=== PATIENT | male | born 1975 | race African-American/Black ===

== ENCOUNTER 2016-11-23 21:38 | Emergency (ER) | payer OTHER ==
--- NOTE | 2016-11-23 22:18 | ED ---
Lower Extremity Injury HPI - General Chief Complaint: Extremity Injury, Lower Stated Complaint: Ankle Injury Time Seen by Provider: 11/23/16 22:00 Source: patient, family, RN notes reviewed, old records reviewed Mode of arrival: ambulatory Limitations: no limitations - Related Data Previous Rx's Medication Instructions Recorded Ibuprofen [Motrin] 600 mg PO Q8HR PRN #20 tab 11/23/16 Allergies Allergy/AdvReac Type Severity Reaction Status Date / Time codeine Allergy Rash/Hives Verified 11/23/16 21:49 Review of Systems ROS Statement: Those systems with pertinent positive or pertinent negative responses have been documented in the HPI. ROS Other: All systems not noted in ROS Statement are negative. Past Medical History Past Medical History: Chest Pain / Angina Additional Past Medical History / Comment(s): heart murmur, History of Any Multi-Drug Resistant Organisms: None Reported Past Surgical History: Orthopedic Surgery Additional Past Surgical History / Comment(s): left lower leg. Past Psychological History: No Psychological Hx Reported Smoking Status: Current every day smoker Past Alcohol Use History: None Reported, Occasional Past Drug Use History: None Reported General Exam Limitations: no limitations General appearance: alert, in no apparent distress Head exam: Present: atraumatic, normocephalic, normal inspection Eye exam: Present: normal appearance, PERRL, EOMI. Absent: scleral icterus, conjunctival injection, periorbital swelling ENT exam: Present: normal exam, mucous membranes moist Neck exam: Present: normal inspection. Absent: tenderness, meningismus, lymphadenopathy Respiratory exam: Present: normal lung sounds bilaterally. Absent: respiratory distress, wheezes, rales, rhonchi, stridor Cardiovascular Exam: Present: regular rate, normal rhythm, normal heart sounds. Absent: systolic murmur, diastolic murmur, rubs, gallop, clicks GI/Abdominal exam: Present: soft, normal bowel sounds. Absent: distended, tenderness, guarding, rebound, rigid Right Lower Leg exam: Present: normal inspection, full ROM Ankle exam: Present: tenderness, swelling. Absent: normal inspection, full ROM Neurovascular tendon exam: Present: no vascular compromise Gait: observed and normal Disposition Clinical Impression: Right ankle sprain Disposition: HOME SELF-CARE Condition: Good Instructions: Ankle Sprain (ED) Additional Instructions: Denies a take Motrin or Tylenol for pain. Remain in the splint for the next day or so. Patient should put ice over the foot and ankle as much as possible. Follow-up with orthopedic within the next 7-10 days of symptoms continue to persist. Return to emergency department if any alarming signs symptoms occur. Prescriptions: Ibuprofen [Motrin] 600 mg PO Q8HR PRN #20 tab PRN Reason: Pain Referrals: None,Stated [Primary Care Provider] - 1-2 days Rizwan Orantes DO [Doctor of Osteopathic Medicine] - 1-2 days Time of Disposition: 22:31
--- NOTE | 2016-11-23 22:24 | XR ---
EXAM: XR Right Foot Complete, 3 or More Views CLINICAL HISTORY: Reason: Pain TECHNIQUE: Frontal, lateral and oblique views of the right foot. COMPARISON: No relevant prior studies available. FINDINGS: Bones/joints: Unremarkable. No acute fracture. No dislocation. Soft tissues: Mild overlying soft tissue swelling is suggested. No radiopaque foreign body. IMPRESSION: Mild soft tissue swelling. No radiographic evidence of an acute fracture. If an occult fracture is suspected, radiographs of the right foot may be obtained in 10-14 days for follow-up.
--- NOTE | 2016-11-23 22:26 | XR ---
EXAM: XR Right Ankle Complete, 3 or More Views CLINICAL HISTORY: Reason: Pain TECHNIQUE: Frontal, lateral and oblique views of the right ankle. COMPARISON: No relevant prior studies available. FINDINGS: Bones/joints: A small ankle joint effusion is suggested. No acute fracture. No dislocation. Soft tissues: Marked soft tissue swelling is seen overlying the lateral malleolus with mild soft tissue swelling overlying the medial malleolus. IMPRESSION: Marked soft tissue swelling, as above. Small ankle joint effusion suggested. No radiographic evidence of an acute fracture. If an occult fracture is suspected, radiographs of the right ankle may be obtained in 10-14 days for follow-up.
== END 2016-11-23 22:42 | disposition home or self-care (01) ==
LOC: EC 21:38
DX: S93.401A Sprain of unspecified ligament of right ankle, initial encounter (principal); F17.200 Nicotine dependence, unspecified, uncomplicated; Z88.5 Allergy status to narcotic agent; Z98.890 Other specified postprocedural states; X50.9XXA Other and unspecified overexertion or strenuous movements or postures, initial encounter; Y92.410 Unspecified street and highway as the place of occurrence of the external cause; Y93.89 Activity, other specified
CPT/HCPCS: 29515; 99284

== ENCOUNTER 2018-03-19 23:18 | Emergency (ER) | payer OTHER ==
[2018-03-19 23:33] VITALS: BP 135/85; PULSE 67; RESP 16; TEMP 98.1
--- NOTE | 2018-03-20 00:15 | XR ---
EXAMINATION TYPE: XR shoulder complete LT DATE OF EXAM: 03/20/2018 COMPARISON: NONE HISTORY: Shoulder pain TECHNIQUE: 3 views FINDINGS: I see no fracture nor dislocation. Joint spaces are normal. There are no pathologic calcifi cations. IMPRESSION: Negative left shoulder exam.
[2018-03-20] MEDS ORDERED: traMADol 50 MG STARTER PACK 3 TAB BTL PO STA (01:55)
--- NOTE | 2018-03-20 01:59 | ED ---
General Adult HPI - General Chief complaint: Extremity Problem,Nontraumatic Stated complaint: L shoulder pain Source: patient Mode of arrival: ambulatory Limitations: no limitations - History of Present Illness Initial comments: 43-year-old male with past medical history of heart murmur presents today for chief complaint of left shoulder pain. Patient states that for the past 1-2 weeks he has been experiencing left shoulder pain that increases with range of motion, he states he feels he has limited secondary to pain. Patient denies any illicit front tingling, loss sensation, chest pain, dyspnea, jaw pain or paresthesias of the upper cherries. Patient denies any direct injury. 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 Patient states he has been not able to work for the past week secondary to pain and left shoulder. Patient denies any bowel pain, nausea, vomiting. Patient denies any erythema, swelling of the left shoulder. patient denies any fever, chills or general malaise. Upon arrival patient is well-appearing, afebrile. Patient does not appear acute distress. Patient states he has been taking ibuprofen at home for pain management however he has not taken any this evening. Remainder of ROS negative, patient denies any recent fever, chills, shortness of breath, chest pain, back pain, abdominal pain, nausea or vomiting, numbness or tingling, dysuria or hematuria, constipation or diarrhea, headaches or visual changes, or any other complaints. - Related Data Previous Rx's Medication Instructions Recorded Ibuprofen [Motrin] 600 mg PO Q8HR PRN #20 tab 11/23/16 Allergies Allergy/AdvReac Type Severity Reaction Status Date / Time codeine Allergy Rash/Hives Verified 03/19/18 23:33 Review of Systems ROS Statement: Those systems with pertinent positive or pertinent negative responses have been documented in the HPI. ROS Other: All systems not noted in ROS Statement are negative. Past Medical History Past Medical History: Chest Pain / Angina Additional Past Medical History / Comment(s): heart murmur, History of Any Multi-Drug Resistant Organisms: None Reported Past Surgical History: Orthopedic Surgery Additional Past Surgical History / Comment(s): left lower leg. Past Psychological History: No Psychological Hx Reported Smoking Status: Current every day smoker Past Alcohol Use History: None Reported, Occasional Past Drug Use History: None Reported General Exam - General Exam Comments Initial Comments: General: The patient is awake and alert, in no distress, and does not appear acutely ill. Eye: Pupils are equal, round and reactive to light, extra-ocular movements are intact. No nystagmus. There is normal conjunctiva bilaterally. No signs of icterus. Ears, nose, mouth and throat: There are moist mucous membranes and no oral lesions. Neck: The neck is supple, there is no tenderness or JVD. Cardiovascular: There is a regular rate and rhythm. No appreciable murmur, rub or gallop is appreciated. Respiratory: Lungs are clear to auscultation, respirations are non-labored, breath sounds are equal. No wheezes, stridor, rales, or rhonchi. Musculoskeletal: Upon inspection of the left shoulder there is no erythema, swelling abrasions lacerations or lesions. No obvious defect or deformity. Patient is able to fully range with for flexion, hyperextension and internal/ external rotation at the left shoulder. Patient does admit to pain with all range of motion. Patient is tender palpation over theAC joint. No scapula tenderness. AC joint crossarm testing patient states reproduces most pain. Positive Neer testing. No noted weakness. Strength 5 out of 5 of the upper extremities including shoulder elbow and wrist joints equally bilaterally. Sensation intact, including the badge area. Patient is able to make the okay [place] thumbs-up and extend at the wrist bilaterally. Ulnar median and radial nerve. Tach. No evidence of wrist. Radial pulses +2 equal bilaterally. Sensation intact and equal bilaterally of the upper extremities. Compartments are soft and compressible. Neurological: A&O x 3. CN II-XII intact, There are no obvious motor or sensory deficits. Coordination appears grossly intact. Speech is normal. Skin: Skin is warm and dry and no rashes or lesions are noted. Psychiatric: Cooperative, appropriate mood & affect, normal judgment. Limitations: no limitations Course Vital Signs 03/19/18 23:31 Temperature 98.1 F Pulse Rate 67 Respiratory 16 Rate Blood Pressure 135/85 O2 Sat by Pulse 100 Oximetry Medical Decision Making - Medical Decision Making 43-year-old male complains of reproducible left shoulder pain. Patient does have a job with repetitive overhead motions. AC crossarm testing reproduces most pain. Patient is tender to palpation over the AC joint. Patient denies any pain to palpation of the scapula. Remainder of review of systems negative. At this time I do feel patient's injury most likely due to overuse. With injury to the before meals joint. No known ever malleus on x-ray. Patient is placed in sling. Patient was given a starter pack for tramadol for pain management. All risks of opioid use were discussed at length patient who verbalized understanding. At this time I do feel patient is stable for discharge with orthopedic surgery follow-up for further evaluation of left shoulder pain. Patient is agreeable plan and discharged. Patient denies constant this time. All return parameters discussed at length prior to discharge. Case discussed , attending provider prior to discharge patient. Disposition Clinical Impression: Left shoulder pain, AC joint pain Disposition: HOME SELF-CARE Condition: Good Instructions: Shoulder Pain (ED) Additional Instructions: Please use medication as discussed- no driving,operating machinery, or working under the influence of tramadol, please do not take with alcohol, other medications discussed or over discussed administration-risks include /over dose. Please follow-up with orthopedic surgery in the next week. Please return to emergency room if the symptoms increase or worsen or for any other concerns. Is patient prescribed a controlled substance at d/c from ED?: No Referrals: None,Stated [Primary Care Provider] - 1-2 days Kirill Sparks PAC [PHYSICIAN SUPPLY ANALYST] - 1-2 days Time of Disposition: 01:58
== END 2018-03-20 02:10 | disposition home or self-care (01) ==
LOC: EC 23:18
DX: M25.512 Pain in left shoulder (principal); F17.200 Nicotine dependence, unspecified, uncomplicated; Z88.5 Allergy status to narcotic agent; X50.3XXA Overexertion from repetitive movements, initial encounter
CPT/HCPCS: 99283

== ENCOUNTER → 2018-05-04 | Outpatient (CLI) | payer OTHER ==
--- NOTE | 2018-05-04 13:52 | MR ---
EXAMINATION TYPE: MR shoulder LT wo con DATE OF EXAM: 05/04/2018 COMPARISON: Left shoulder x-ray March 20, 2018. HISTORY: Pain in left shoulder TECHNIQUE: Multiplanar, multisequence imaging of the left shoulder is performed without contrast. FINDINGS: Rotator Cuff: Distal supraspinatus and infraspinatus tendons are intact. Tiny articular surface tear felt involving anterior infraspinatus tendon fibers measuring 6 mm in AP diameter parasagittal image 6 and 2 mm transverse diameter paracoronal image 16. Supraspinatus tendon is intact. Rotator cuff mus justyn bulk is preserved. Acromioclavicular Joint: Moderate narrowing and capsular hypertrophy is present. Inferior fat plane i s maintained. Distal acromion morphology is unremarkable. Glenohumeral Joint: Small glenohumeral joint effusion is seen. No significant spurring is present. Labrum: The superior labrum shows irregularity and linear increased signal paracoronal images 12 thro ugh 15 suspicious for tear. Biceps Tendon: The long head of biceps is in normal location within bicipital groove. Bone marrow signal: No focal abnormal marrow signal is appreciated. Other: No additional significant abnormality is appreciated. IMPRESSION: 1. Tiny articular surface tear involving anterior 1/5 of fibers of the infraspinatus tendon. 2. Probable superior labral tear, correlate clinically. 3. Moderate AC joint arthropathy without underlying impingement.
== END | disposition home or self-care (01) ==
LOC: RADMRIMAIN 10:37
PROVIDERS: ATTEND Orthopaedic Surgery
DX: M75.102 Unspecified rotator cuff tear or rupture of left shoulder, not specified as traumatic (principal); M19.012 Primary osteoarthritis, left shoulder

== ENCOUNTER 2019-05-04 09:27 | Emergency (ER) | payer OTHER ==
[2019-05-04] MEDS ORDERED: IPRATROPIUM-ALBUTEROL 3 ML NEB INHALATION STA (10:00)
[2019-05-04] MEDS ORDERED: methylPREDNISolone SOD SUCCI 125 MG/2 ML VIAL IM ONE (10:00)
--- NOTE | 2019-05-04 10:34 | ED ---
SOB HPI - General Chief Complaint: Shortness of Breath Stated Complaint: SOB/lower back pain Time Seen by Provider: 05/04/19 09:39 Source: patient, RN notes reviewed, old records reviewed Mode of arrival: ambulatory Limitations: no limitations - History of Present Illness Initial Comments: Is a 44-year-old male with a history of cough, respiratory congestion for the past 3 days. He reports that he has a worsening cough with laying down at night. He lives in a [facility] house has been exposed to sick contacts with pneumonia. Patient states that he is a smoker and plans to quit. He is here with his fiance. He denies any fever. Denies any resting chest pain or abdominal pain. - Related Data Home Medications Medication Instructions Recorded Confirmed Ibuprofen [Motrin Ib] 600 mg PO Q8H PRN 05/04/19 05/04/19 Previous Rx's Medication Instructions Recorded Albuterol Inhaler [Ventolin Hfa 1 - 2 puff INHALATION RT-Q6H PRN 05/04/19 Inhaler] #1 inhaler Azithromycin [Zithromax Z-pack] 250 mg PO DIRECTED #6 tab 05/04/19 Promethazine/Dextromethorphan 5 ml PO TID #120 ml 05/04/19 [Phenergan DM Syrup] predniSONE 10 mg PO DAILY #15 tab 05/04/19 Allergies Allergy/AdvReac Type Severity Reaction Status Date / Time codeine Allergy Rash/Hives Verified 03/19/18 23:33 Review of Systems ROS Statement: Those systems with pertinent positive or pertinent negative responses have been documented in the HPI. ROS Other: All systems not noted in ROS Statement are negative. Past Medical History Past Medical History: Chest Pain / Angina Additional Past Medical History / Comment(s): heart murmur, History of Any Multi-Drug Resistant Organisms: None Reported Past Surgical History: Orthopedic Surgery Additional Past Surgical History / Comment(s): left lower leg. Past Psychological History: No Psychological Hx Reported Smoking Status: Current every day smoker Past Alcohol Use History: None Reported, Occasional Past Drug Use History: None Reported General Exam - General Exam Comments Initial Comments: 44-year-old male. Alert and oriented 3. Patient appears in no significant distress. Limitations: no limitations Head exam: Present: atraumatic, normocephalic, normal inspection Eye exam: Present: normal appearance, PERRL, EOMI. Absent: scleral icterus, conjunctival injection, periorbital swelling ENT exam: Present: normal exam, mucous membranes moist Neck exam: Present: normal inspection. Absent: tenderness, meningismus, lymphadenopathy Respiratory exam: Present: normal lung sounds bilaterally. Absent: respiratory distress, wheezes, rales, rhonchi, stridor Cardiovascular Exam: Present: regular rate, normal rhythm, normal heart sounds. Absent: systolic murmur, diastolic murmur, rubs, gallop, clicks GI/Abdominal exam: Present: soft, normal bowel sounds. Absent: distended, tenderness, guarding, rebound, rigid Extremities exam: Present: normal inspection, full ROM, normal capillary refill. Absent: tenderness, pedal edema, joint swelling, calf tenderness Back exam: Present: normal inspection Neurological exam: Present: alert, oriented X3, CN II-XII intact Psychiatric exam: Present: normal affect, normal mood Skin exam: Present: warm, dry, intact, normal color. Absent: rash Course Vital Signs 05/04/19 05/04/19 05/04/19 09:30 10:17 10:26 Temperature 97.9 F Pulse Rate 94 92 92 Respiratory 19 Rate Blood Pressure 137/84 O2 Sat by Pulse 97 Oximetry Medical Decision Making - Medical Decision Making 44-year-old male presents today for cough congestion for the past 3-4 days. Patient reports symptoms are worse with laying down at night. She reports he reports the cough is productive. He is a smoker. Patient was given breathing treatment did have improvement. Chest x-rays negative for any acute process. Patient at this time will be discharged home with prescription for steroids and azithromycin for productive cough and inhaler. Discussed the importance of smoking cessation for greater than 5 minutes. Discussed return parameters. - Radiology Data Radiology results: report reviewed Chest x-ray is negative for any acute cardiopulmonary process. No pleural effusion. Disposition Clinical Impression: COPD exacerbation Disposition: HOME SELF-CARE Condition: Good Instructions (If sedation given, give patient instructions): COPD (Chronic Obstructive Pulmonary Disease) (ED), Acute Bronchitis (ED) Additional Instructions: Please use medication as discussed. Patient should stop smoking. Please follow up with family doctor if symptoms have not improved over the next two days. Please return to the emergency room if your symptoms increase or worsen or for any other concerns. Prescriptions: Promethazine/Dextromethorphan [Phenergan DM Syrup] 5 ml PO TID #120 ml predniSONE 10 mg PO DAILY #15 tab Albuterol Inhaler [Ventolin Hfa Inhaler] 1 - 2 puff INHALATION RT-Q6H PRN #1 inhaler PRN Reason: Shortness Of Breath Azithromycin [Zithromax Z-pack] 250 mg PO DIRECTED #6 tab Is patient prescribed a controlled substance at d/c from ED?: No Referrals: Mauro Dias MD [Primary Care Provider] - 1-2 days Time of Disposition: 11:11
--- NOTE | 2019-05-04 10:59 | XR ---
EXAMINATION TYPE: XR chest 2V DATE OF EXAM: 05/04/2019 COMPARISON: 10/09/2015 HISTORY: Chest pain TECHNIQUE: Frontal and lateral views of the chest are obtained. FINDINGS: There is no focal air space opacity. No evidence for pneumothorax. No pleural effusion. The cardiac silhouette size is within normal limits. The osseous structures are grossly intact. IMPRESSION: 1. No acute cardiopulmonary process.
[2019-05-04 11:28] VITALS: BP 137/95; PULSE 89; RESP 18; TEMP 98.4
== END 2019-05-04 11:28 | disposition home or self-care (01) ==
LOC: EC 09:27
DX: J44.1 Chronic obstructive pulmonary disease with (acute) exacerbation (principal); F17.200 Nicotine dependence, unspecified, uncomplicated; Z71.6 Tobacco abuse counseling; Z88.5 Allergy status to narcotic agent; Z86.79 Personal history of other diseases of the circulatory system
CPT/HCPCS: 94640; 71046; 96372; 99285; 99406; J2930

== ENCOUNTER → 2021-03-09 | Outpatient (CLI) | payer OTHER ==
--- NOTE | 2021-03-09 08:13 | XR ---
EXAMINATION TYPE: XR shoulder complete LT DATE OF EXAM: 03/09/2021 CLINICAL HISTORY: Pain for 3 years. TECHNIQUE: Three views of the left shoulder are obtained. COMPARISON: Left shoulder x-ray March 20, 2018 FINDINGS: There is no acute fracture/dislocation evident in the left shoulder. Mild to moderate narr owing and spurring acromioclavicular joint redemonstrated. Distal acromion morphology unremarkable. M ild narrowing glenohumeral joint without significant spurring redemonstrated. The visualized ribs are intact . IMPRESSION: As above. No significant change from prior.
== END | disposition home or self-care (01) ==
LOC: LABWHC1 07:14
PROVIDERS: ATTEND Family Medicine
DX: R07.9 Chest pain, unspecified (principal); R01.1 Cardiac murmur, unspecified; M25.512 Pain in left shoulder
CPT/HCPCS: 36415; 93005

== ENCOUNTER 2021-04-10 09:39 | Observation (INO) | payer BC, OTHER ==
[2021-04-10] MEDS ORDERED: ASPIRIN 81 MG PO STA (10:00)
--- NOTE | 2021-04-10 10:05 | ED ---
General Adult HPI - General Chief complaint: Chest Pain Stated complaint: chest pain Time Seen by Provider: 04/10/21 09:46 Source: patient, family Mode of arrival: ambulatory Limitations: no limitations - History of Present Illness Initial comments: Dictation was produced using [employer] dictation software. please excuse any grammatical, word or spelling errors. Chief Complaint: 46-year-old male presents emergency department for chest pain History of Present Illness: Patient is a 46-year-old male presents to the emergency department for several hours of chest pain. He states it is like a squeezing sensation to his substernal area. Patient is a regular tobacco user. He denies any other medical problems. He states he has strong family history of ACS and heart attacks. States that all of the males in his family has had some sort of acute coronary syndrome. Patient denies any radiation of symptoms to his jaw or upper extremity. He states he didn't report accompanied lightheadedness. Patient states his symptoms are significantly improved although he still does feel some sensation to his substernal area. No shortness of breath. The ROS documented in this emergency department record has been reviewed and confirmed by me. Those systems with pertinent positive or negative responses have been documented in the HPI. All other systems are other negative and/or noncontributory. PHYSICAL EXAM: General Impression: Alert and oriented x3, not in acute distress HEENT: Normocephalic atraumatic, extra-ocular movements intact, pupils equal and reactive to light bilaterally, mucous membranes moist. Cardiovascular: Heart regular rate and rhythm Chest: Able to complete full sentences, no retractions, no tachypnea Abdomen: abdomen soft, non-tender, non-distended, no organomegaly Musculoskeletal: Pulses present and equal in all extremities, no peripheral edema Motor: no focal deficits noted Neurological: CN II-XII grossly intact, no focal motor or sensory deficits noted Skin: Intact with no visualized rashes Psych: Normal affect and mood ED course: 46-year-old male with significant risk factors for ACS presents to the emergency department for ACS-type symptoms. Vital signs upon arrival are within acceptable limits. EKG does not show any signs of infarction. Laboratory evaluation obtained. CBC, coag panel, metabolic panel is unremarkable. Troponin is negative. COVID-19 test is negative. Chest x-ray is nonacute. Patient reevaluated at bedside 11:45 AM. He is well-appearing. He denies any chest symptoms at this time. Considering patient's history of present illness and extensive family history of ACS patient be admitted to observation with consultation cardiology, sutured troponins and cardiac monitoring. Case is discussed with Dr. Degroot who is willing to accept patients care. EKG interpretation: Ventricular rate 64, normal sinus rhythm,. Interval 162, QRS 80, QTC 44. No MT prolongation, no QTC prolongation, no ST or T-wave changes noted. Perhaps hyperacute T waves in the anterior precordial leads. Rest of EKG is comparable. - Related Data Home Medications Medication Instructions Recorded Confirmed No Known Home Medications 04/10/21 04/10/21 Allergies Allergy/AdvReac Type Severity Reaction Status Date / Time codeine Allergy Rash/Hives Verified 04/10/21 10:48 Review of Systems ROS Statement: Those systems with pertinent positive or pertinent negative responses have been documented in the HPI. ROS Other: All systems not noted in ROS Statement are negative. Past Medical History Past Medical History: Chest Pain / Angina Additional Past Medical History / Comment(s): heart murmur, History of Any Multi-Drug Resistant Organisms: None Reported Past Surgical History: Orthopedic Surgery Additional Past Surgical History / Comment(s): left lower leg. Past Psychological History: No Psychological Hx Reported Smoking Status: Current every day smoker Past Alcohol Use History: None Reported, Occasional Past Drug Use History: None Reported General Exam Limitations: no limitations Course Vital Signs 04/10/21 04/10/21 09:40 09:53 Temperature 97.7 F Pulse Rate 74 Pulse Rate [ 64 Net Finisher ] Respiratory 18 Rate Blood Pressure 132/87 O2 Sat by Pulse 99 Oximetry Medical Decision Making - Lab Data Result diagrams: 04/10/21 10:07 04/10/21 10:07 Lab Results 04/10/21 04/10/21 04/10/21 Range/Units 10:07 10:07 10:07 WBC 9.0 (3.8-10.6) k/uL RBC 4.98 (4.30-5.90) m/uL Hgb 16.1 (13.0-17.5) gm/dL Hct 48.6 (39.0-53.0) % MCV 97.5 (80.0-100.0) fL MCH 32.3 (25.0-35.0) pg MCHC 33.1 (31.0-37.0) g/dL RDW 14.8 (11.5-15.5) % Plt Count 138 L (150-450) k/uL MPV 9.4 Neutrophils % 76 % Lymphocytes % 18 % Monocytes % 4 % Eosinophils % 1 % Basophils % 0 % Neutrophils # 6.9 (1.3-7.7) k/uL Lymphocytes # 1.6 (1.0-4.8) k/uL Monocytes # 0.3 (0-1.0) k/uL Eosinophils # 0.1 (0-0.7) k/uL Basophils # 0.0 (0-0.2) k/uL PT 10.2 (9.0-12.0) sec INR 0.9 (<1.2) APTT 24.6 (22.0-30.0) sec Sodium 136 L (137-145) mmol/L Potassium 4.2 (3.5-5.1) mmol/L Chloride 106 (98-107) mmol/L Carbon Dioxide 26 (22-30) mmol/L Anion Gap 4 mmol/L BUN 15 (9-20) mg/dL Creatinine 0.78 (0.66-1.25) mg/dL Est GFR (CKD-EPI)AfAm >90 (>60 ml/min/1.73 sqM) Est GFR (CKD-EPI)NonAf >90 (>60 ml/min/1.73 sqM) Glucose 102 H (74-99) mg/dL Calcium 9.3 (8.4-10.2) mg/dL Magnesium 1.8 (1.6-2.3) mg/dL Total Bilirubin 0.5 (0.2-1.3) mg/dL AST 30 (17-59) U/L ALT 29 (4-49) U/L Alkaline Phosphatase 72 (38-126) U/L Troponin I (0.000-0.034) ng/mL Total Protein 7.4 (6.3-8.2) g/dL Albumin 4.1 (3.5-5.0) g/dL Lipase 83 (23-300) U/L Coronavirus (PCR) (Not Detectd) 04/10/21 04/10/21 Range/Units 10:07 10:25 WBC (3.8-10.6) k/uL RBC (4.30-5.90) m/uL Hgb (13.0-17.5) gm/dL Hct (39.0-53.0) % MCV (80.0-100.0) fL MCH (25.0-35.0) pg MCHC (31.0-37.0) g/dL RDW (11.5-15.5) % Plt Count (150-450) k/uL MPV Neutrophils % % Lymphocytes % % Monocytes % % Eosinophils % % Basophils % % Neutrophils # (1.3-7.7) k/uL Lymphocytes # (1.0-4.8) k/uL Monocytes # (0-1.0) k/uL Eosinophils # (0-0.7) k/uL Basophils # (0-0.2) k/uL PT (9.0-12.0) sec INR (<1.2) APTT (22.0-30.0) sec Sodium (137-145) mmol/L Potassium (3.5-5.1) mmol/L Chloride (98-107) mmol/L Carbon Dioxide (22-30) mmol/L Anion Gap mmol/L BUN (9-20) mg/dL Creatinine (0.66-1.25) mg/dL Est GFR (CKD-EPI)AfAm (>60 ml/min/1.73 sqM) Est GFR (CKD-EPI)NonAf (>60 ml/min/1.73 sqM) Glucose (74-99) mg/dL Calcium (8.4-10.2) mg/dL Magnesium (1.6-2.3) mg/dL Total Bilirubin (0.2-1.3) mg/dL AST (17-59) U/L ALT (4-49) U/L Alkaline Phosphatase (38-126) U/L Troponin I <0.012 (0.000-0.034) ng/mL Total Protein (6.3-8.2) g/dL Albumin (3.5-5.0) g/dL Lipase (23-300) U/L Coronavirus (PCR) Not Detected (Not Detectd) Disposition Clinical Impression: Chest pain Disposition: ADMITTED IP TO THIS HOSP Condition: Fair Referrals: Mauro Dias MD [Primary Care Provider] - 1-2 days
[2021-04-10 10:28] LABS: INR 0.9 (<1.2); Partial Thromboplastin Time 24.6 sec (22.0-30.0); Prothrombin Time 10.2 sec (9.0-12.0)
[2021-04-10 10:31] LABS: ALT 29 U/L (4-49); AST 30 U/L (17-59); African American GFR (CKD) >90 (>60 ml/min/1.73 sqM); Albumin 4.1 g/dL (3.5-5.0); Alkaline Phosphatase 72 U/L (38-126); Anion Gap 4 mmol/L; Blood Urea Nitrogen 15 mg/dL (9-20); Calcium 9.3 mg/dL (8.4-10.2); Carbon Dioxide 26 mmol/L (22-30); Chloride 106 mmol/L (98-107); Glucose 102 mg/dL (74-99); Lipase 83 U/L (23-300); Magnesium 1.8 mg/dL (1.6-2.3); Non-African American GFR(CKD) >90 (>60 ml/min/1.73 sqM); Potassium 4.2 mmol/L (3.5-5.1); Sodium 136 mmol/L (137-145); Total Bilirubin 0.5 mg/dL (0.2-1.3); Total Protein 7.4 g/dL (6.3-8.2)
[2021-04-10 10:34] LABS: Basophils % (A) 0 %; Eosinophils # (A) 0.1 k/uL (0-0.7); Eosinophils % (A) 1 %; HCT 48.6 % (39.0-53.0); HGB 16.1 gm/dL (13.0-17.5); Lymphocytes # (A) 1.6 k/uL (1.0-4.8); Lymphocytes % (A) 18 %; MCH 32.3 pg (25.0-35.0); MCHC 33.1 g/dL (31.0-37.0); MCV 97.5 fL (80.0-100.0); Mean Platelet Volume 9.4; Monocytes # (A) 0.3 k/uL (0-1.0); Monocytes % (A) 4 %; Neutrophils # (A) 6.9 k/uL (1.3-7.7); Neutrophils % (A) 76 %; Platelet Count 138 k/uL (150-450); RBC 4.98 m/uL (4.30-5.90); RDW 14.8 % (11.5-15.5)
--- NOTE | 2021-04-10 10:53 | XR ---
EXAMINATION TYPE: XR chest 2V DATE OF EXAM: 04/10/2021 COMPARISON: 05/04/2019 TECHNIQUE: PA and lateral views submitted. HISTORY: Chest pain FINDINGS: The lungs are clear and there is no pneumothorax, pleural effusion, or focal pneumonia. Arthropathy of the shoulders. Heart size normal. No overt failure. IMPRESSION: 1. No acute process.
[2021-04-10] MEDS ORDERED: NITROGLYCERIN SL TABS 0.4 MG TAB SUBLINGUAL PRN (11:43)
--- NOTE | 2021-04-10 12:43 | P.CRDCN ---
History of Present Illness Consult date: 04/10/21 History of present illness: HISTORY OF PRESENT ILLNESS: This is a 46-year-old male with a past medical history significant for cigar use, marijuana use, and former nicotine dependence. 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 The patient does report that he recently established with a primary care physician and had an EKG performed which revealed sinus bradycardia and he was referred to see a grout machine operator. The patient states he has an ap pointment on to establish care with Dr. Figueroa. We have been asked to see the patient in consultation for chest pain. Patient examined at the bedside in the emergency room. 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 He states he stood up and became lightheaded. He did not think too much of it and continued working. He states he then developed chest pain. He states it was a squeezing sensation in the middle of his chest. He denies any radiation of the pain. He denied any SOB. Denies nausea or vomiting. He states the pain lasted for about an hour and then subsided. Patient states he has a strong family history of coronary artery disease and s tates "90% of the males in my family have denied of heart attacks". He gives further history that his cousin of a heart attack in his 40s and his dad at the age of 65 from a heart attack. EKG reveals sinus mechanism with nonspecific ST-T wave changes Chest xray negative for acute process Laboratory data: WBC 9.0. Hemoglobin 16.1. Platelet count 138. Sodium 136. Potassium 4.2. BUN 15. Creatinine 0.78. Troponin negative 1. Current home cardiac medications include none REVIEW OF SYSTEMS: At the time of my exam: CONSTITUTIONAL: Denies fever or chills. HEENT: Denies blurred vision, vision changes, or eye pain. Denies hemoptysis CARDIOVASCULAR: Denies chest pain. Denies orthopnea. Denies PND. Denies palpitations RESPIRATORY: Denies shortness of breath. GASTROINTESTINAL: Denies abdominal pain. Denies nausea or vomiting. HEMATOLOGIC: Denies bleeding disorders. GENITOURINARY: Denies any blood in urine. SKIN: Denies pruitis. Denies rash. PHYSICAL EXAM: VITAL SIGNS: Reviewed. GENERAL: Well-developed in no acute distress. HEENT: Head is normocephalic. Pupils are equal, round. Sclerae anicteric. Mucous membranes of the mouth are moist. Neck supple. No JVD or thyromegaly LUNGS: Respirations even and unlabored. Lungs essentially clear to auscultation bilaterally. HEART: Regular rate and rhythm. S1 and S2 heard. ABDOMEN: Soft. Nondistended. Nontender. EXTREMITIES: Normal range of motion. No clubbing or cyanosis. Peripheral pulses intact. No lower extremity edema NEUROLOGIC: Awake and alert. Oriented x 3. ASSESSMENT: Chest pain Daily cigar use and marijuana use Former nicotine dependence Family history of premature coronary artery disease PLAN: Obtain 2D echo to assess cardiac structure and function Decrease aspirin to 81mg daily Trend troponins NPO at midnight Patient to undergo stress echo tomorrow to assess for ischemia if troponins remain negative Further recommendations pending patient course Nurse practitioner note has been reviewed by physician. Signing provider agrees with the documented findings, assessment, and plan of care. Past Medical History Past Medical History: Chest Pain / Angina Additional Past Medical History / Comment(s): heart murmur, History of Any Multi-Drug Resistant Organisms: None Reported Past Surgical History: Orthopedic Surgery Additional Past Surgical History / Comment(s): left lower leg. Past Psychological History: No Psychological Hx Reported Smoking Status: Current every day smoker Past Alcohol Use History: None Reported, Occasional Past Drug Use History: None Reported Medications and Allergies Home Medications Medication Instructions Recorded Confirmed Type No Known Home Medications 04/10/21 04/10/21 History Allergies Allergy/AdvReac Type Severity Reaction Status Date / Time codeine Allergy Rash/Hives Verified 04/10/21 10:48 Physical Exam Vitals: Vital Signs Temp Pulse Pulse Resp BP Pulse Ox 04/10/21 09:53 64 04/10/21 09:40 97.7 F 74 18 132/87 99 Intake and Output 04/09/21 04/10/21 04/10/21 22:59 06:59 14:59 Other: Weight 90.718 kg Results 04/10/21 10:07 04/10/21 10:07 Cardiac Enzymes 04/10/21 04/10/21 Range/Units 10:07 10:07 AST 30 (17-59) U/L Troponin I <0.012 (0.000-0.034) ng/mL Coagulation 04/10/21 Range/Units 10:07 PT 10.2 (9.0-12.0) sec APTT 24.6 (22.0-30.0) sec CBC 04/10/21 Range/Units 10:07 WBC 9.0 (3.8-10.6) k/uL RBC 4.98 (4.30-5.90) m/uL Hgb 16.1 (13.0-17.5) gm/dL Hct 48.6 (39.0-53.0) % Plt Count 138 L (150-450) k/uL Comprehensive Metabolic Panel 04/10/21 Range/Units 10:07 Sodium 136 L (137-145) mmol/L Potassium 4.2 (3.5-5.1) mmol/L Chloride 106 (98-107) mmol/L Carbon Dioxide 26 (22-30) mmol/L BUN 15 (9-20) mg/dL Creatinine 0.78 (0.66-1.25) mg/dL Glucose 102 H (74-99) mg/dL Calcium 9.3 (8.4-10.2) mg/dL AST 30 (17-59) U/L ALT 29 (4-49) U/L Alkaline Phosphatase 72 (38-126) U/L Total Protein 7.4 (6.3-8.2) g/dL Albumin 4.1 (3.5-5.0) g/dL Current Medications Generic Name Dose Route Start Last Admin Trade Name Freq PRN Reason Stop Dose Admin Aspirin 81 mg 04/11/21 09:00 Aspirin 81 Mg PO DAILY DAVID Nitroglycerin 0.4 mg 04/10/21 11:43 Nitroglycerin Sl Tabs 0.4 Mg Tab SUBLINGUAL Q5M PRN Chest Pain Intake and Output 04/09/21 04/10/21 04/10/21 22:59 06:59 14:59 Other: Weight 90.718 kg Patient Weight 04/11/21 06:59 Weight 90.718 kg 04/10/21 10:07 04/10/21 10:07
[2021-04-10] MEDS ORDERED: NALOXONE 0.4 MG/ML 1 ML VIAL IV PRN (13:45)
[2021-04-10] MEDS ORDERED: ONDANSETRON 4 MG/2 ML VIAL IVP PRN (13:45)
[2021-04-10] MEDS ORDERED: ALPRAZolam 0.25 MG TAB PO PRN (13:45)
[2021-04-10] MEDS ORDERED: CALCIUM CARBONATE 500 MG CHEWABLE PO PRN (13:45)
[2021-04-10] MEDS ORDERED: ACETAMINOPHEN TAB 325 MG TAB PO PRN (13:45)
[2021-04-10] MEDS ORDERED: MELATONIN 3 MG TABLET PO PRN (13:45)
--- NOTE | 2021-04-10 14:22 | P.HPIM ---
History of Present Illness H&P Date: 04/10/21 Chief Complaint: Chest pain This is a 46-year-old patient who follows with Dr. Dias. Patient does not take any medications at home. Patient was at work this morning and he felt a squeezing sensation in the middle of the chest. He feels slightly dizzy. No perspiration. Slightly short of breath. Do not radiate anywhere. No relieving or exacerbating factors. Pain was still present after 3-4 hours. Patient denies any prior cardiac history. He does smoke 2 cigars a day. Was a prior cigarette smoker. Does smoke marijuana 2-3 joints a day. Patient admitted for unstable angina. Review of systems: GEN.: None EYES: None HEENT: None NECK: None RESPIRATORY: As above CARDIOVASCULAR: As above GASTROINTESTINAL: None GENITOURINARY: None MUSCULOSKELETAL: None LYMPHATICS: None HEMATOLOGICAL: None PSYCHIATRY: None NEUROLOGICAL: None Past medical history to include: Heart murmur Social history: Patient works at a company that makes [employer] for [employer]. Smokes 2 cigars a day. For about a year. Prior to that a smoke cigarettes. Smokes marijuana 2-3 joints a day. Alcohol occasionally. . Physical examination: VITAL SIGNS: 97.7, 74, 18, 132/87, 99% room air GENERAL: BMI 26.4, sitting up eating lunch. EYES: Pupils equal. Conjunctiva normal. HEENT: External appearance of nose and ears normal, oral cavity grossly normal. NECK: JVD not raised; masses not palpable. HEART: First and second heart sounds are normal; no edema. LUNGS: Respiratory rate normal; clear to auscultation. ABDOMEN: Soft, nontender, liver spleen not palpable, no masses palpable. PSYCH: Alert and oriented x3; mood and affect normal. MUSCULOSKELETAL:No Clubbing/cyanosis;muscles-grossly intact NEUROLOGICAL: Cranial nerves grossly intact; no facial asymmetry, power and sensation grossly intact. LYMPHATICS: No lymph nodes palpable in the axilla and neck INVESTIGATIONS, reviewed in the clinical context: White count 9.0 hemoglobin 16.1 platelets 138 potassium 4.2 creatinine 0.78 Troponin I less than 0.0122 Coronavirus [PCR]: Not detected EKG tracing personally reviewed by me-normal sinus rhythm. Rate 64 Chest x-ray film personally reviewed by me-some hyperinflation. No infiltrate Assessment and plan: -Anterior chest wall pain. Lasting for more than 3 hours. Coronary risk factors include smoking and smoking marijuana. EKG unremarkable. Troponins are negative. Cardiology consulted. Telemetry. -Chronic nicotine dependence, cigarette smoker Nicotine patch -Recreational marijuana use daily Advised against the same Telemetry. 2-D echocardiogram. Serial cardiac enzymes. Cardiology consulted. Aspirin. Nicotine patch. Past Medical History Past Medical History: Chest Pain / Angina Additional Past Medical History / Comment(s): heart murmur, History of Any Multi-Drug Resistant Organisms: None Reported Past Surgical History: Orthopedic Surgery Additional Past Surgical History / Comment(s): left lower leg. Past Psychological History: No Psychological Hx Reported Smoking Status: Current every day smoker Past Alcohol Use History: None Reported, Occasional Past Drug Use History: None Reported Medications and Allergies Home Medications Medication Instructions Recorded Confirmed Type No Known Home Medications 04/10/21 04/10/21 History Allergies Allergy/AdvReac Type Severity Reaction Status Date / Time codeine Allergy Rash/Hives Verified 04/10/21 10:48 Physical Exam Vitals: Vital Signs Temp Pulse Pulse Resp BP Pulse Ox 04/10/21 09:53 64 04/10/21 09:40 97.7 F 74 18 132/87 99 Intake and Output 04/09/21 04/10/21 04/10/21 22:59 06:59 14:59 Other: Weight 90.718 kg Results CBC & Chem 7: 04/10/21 10:07 04/10/21 10:07 Labs: Abnormal Lab Results - Last 24 Hours (Table) 04/10/21 04/10/21 Range/Units 10:07 10:07 Plt Count 138 L (150-450) k/uL Sodium 136 L (137-145) mmol/L Glucose 102 H (74-99) mg/dL
[2021-04-10 16:27] VITALS: RESP 18
[2021-04-10] MEDS: NICOTINE 21MG/24HR PATCH TRANSDERM SCH (17:09)
--- NOTE | 2021-04-11 08:00 | ECHOF ---
Referral Reason:chest pain MEASUREMENTS -------- HEIGHT: 182.9 cm WEIGHT: 90.7 kg BP: 132/87 RVIDd: 3.3 cm (< 3.3) IVSd: 1.1 cm (0.6 - 1.1) LVIDd: 4.9 cm (3.9 - 5.3) LVPWd: 1.1 cm (0.6 - 1.1) IVSs: 1.7 cm LVIDs: 2.7 cm LVPWs: 1.7 cm LAESV Index (A-L): 16.19 ml/m Ao Diam: 2.8 cm (2.0 - 3.7) AV Cusp: 2.1 cm (1.5 - 2.6) LA Diam: 3.1 cm (2.7 - 3.8) MV EXCURSION: 19.676 mm (> 18.000) MV EF SLOPE: 71 mm/s (70 - 150) EPSS: 0.2 cm MV E Jamey: 0.88 m/s MV DecT: 290 ms MV A Jamey: 0.54 m/s MV E/A Ratio: 1.61 RAP: 5.00 mmHg RVSP: 24.27 mmHg FINDINGS -------- Sinus rhythm. This was a technically adequate study. The left ventricular size is normal. Left ventricular wall thickness is normal. Overall left vent ricular systolic function is normal with, an EF between 55 - 60 %. The diastolic filling pattern is normal for the age of the patient 6.58. The right ventricle is mildly enlarged. Normal LA size by volume 22+/-6 ml/m2. The right atrial size is normal. Interatrial and interventricular septum intact. The aortic valve is trileaflet and appears structurally normal. There is no evidence of aortic regu rgitation. There is no evidence of aortic stenosis. No mitral regurgitation. Trace tricuspid regurgitation present. There is no evidence of pulmonary hypertension. The right ventricular systolic pressure, as measured by Doppler, is 24.27mmHg. There is no pulmonic regurgitation present. The aortic root size is normal. The inferior vena cava is mildly dilated. Echo free space represents a pericardial fat pad. There is no pericardial effusion. CONCLUSIONS -------- 1. The left ventricular size is normal. 2. Left ventricular wall thickness is normal. 3. Overall left ventricular systolic function is normal with, an EF between 55 - 60 %. 4. The diastolic filling pattern is normal for the age of the patient 6.58 5. The right ventricle is mildly enlarged. 6. Trace tricuspid regurgitation present. ROUTEMAN: Antonia Cochran RDCS
[2021-04-11 08:11] VITALS: BP 110/70; PULSE 80; TEMP 97.9
[2021-04-11] MEDS ORDERED: ASPIRIN 81 MG PO SCH (09:00)
[2021-04-11] MEDS ORDERED: ASPIRIN 325 MG TAB PO SCH (09:00)
--- NOTE | 2021-04-11 10:01 | P.PN ---
Subjective Progress Note Date: 04/11/21 HISTORY OF PRESENT ILLNESS: This is a 46-year-old male with a past medical history significant for cigar use, marijuana use, and former nicotine dependence. 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 The patient does report that he recently established with a primary care physician and had an EKG performed which revealed sinus bradycardia and he was referred to see a parcel post order clerk. The patient states he has an appointment on to establish care with Dr. Figueroa. We have been asked to see the patient in consultation for chest pain. Patient examined at the bedside in the emergency room. 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 He states he stood up and became lightheaded. He did not think too much of it and continued working. He states he then developed chest pain. He states it was a squeezing sensation in the middle of his chest. He denies any radiation of the pain. He denied any SOB. Denies nausea or vomiting. He states the pain lasted for about an hour and then subsided. Patient states he has a strong family history of coronary artery disease and states "90% of the males in my family have denied of heart attacks". He gives further history that his cousin of a heart attack in his 40s and his dad at the age of 65 from a heart attack. EKG reveals sinus mechanism with nonspecific ST-T wave changes Chest xray negative for acute process Laboratory data: WBC 9.0. Hemoglobin 16.1. Platelet count 138. Sodium 136. Potassium 4.2. BUN 15. Creatinine 0.78. Troponin negative 1. Current home cardiac medications include none 04/11/2021 Patient examined this morning at the bedside. Patient denies chest pain or pressure. Denies shortness of breath. Troponins are negative 3. Echocardiogram completed revealing ejection fraction 55-60% with trace tricuspid regurgitation. Vital signs are stable. PHYSICAL EXAM: VITAL SIGNS: Reviewed. GENERAL: Well-developed in no acute distress. HEENT: Head is normocephalic. Pupils are equal, round. Sclerae anicteric. Mucous membranes of the mouth are moist. Neck supple. No JVD or thyromegaly LUNGS: Respirations even and unlabored. Lungs essentially clear to auscultation bilaterally. HEART: Regular rate and rhythm. S1 and S2 heard. ABDOMEN: Soft. Nondistended. Nontender. EXTREMITIES: Normal range of motion. No clubbing or cyanosis. Peripheral pulses intact. No lower extremity edema NEUROLOGIC: Awake and alert. Oriented x 3. ASSESSMENT: Chest pain Daily cigar use and marijuana use Former nicotine dependence Family history of premature coronary artery disease PLAN: Continue current cardiac medications Patient to undergo stress echo this morning. If negative, he may be discharged home from a cardiac standpoint Further recommendations pending patient course Nurse practitioner note has been reviewed by physician. Signing provider agrees with the documented findings, assessment, and plan of care. Objective - Vital Signs Vital signs: Vital Signs Temp 97.9 F 04/11/21 07:00 Pulse 80 04/11/21 07:00 Resp 18 04/11/21 07:00 BP 110/70 04/11/21 07:00 Pulse Ox 94 L 04/11/21 07:00 Intake & Output 04/10/21 04/11/21 04/11/21 18:59 06:59 18:59 Intake Total 240 Balance 240 Weight 90.718 kg Intake: Oral 240 Other: # Voids 1 2 1 - Labs CBC & Chem 7: 04/10/21 10:07 04/10/21 10:07 Labs: Abnormal Lab Results - Last 24 Hours (Table) 04/10/21 04/10/21 Range/Units 10:07 10:07 Plt Count 138 L (150-450) k/uL Sodium 136 L (137-145) mmol/L Glucose 102 H (74-99) mg/dL
[2021-04-11] MEDS: NICOTINE 21MG/24HR PATCH TRANSDERM SCH (10:55)
[2021-04-11 11:39] LABS: Chol/HDL Ratio 2.15 Ratio; LDL Cholesterol,Calculated 82.6 mg/dL (0.0-131.0)
--- NOTE | 2021-04-11 14:19 | ECHOS ---
STRESS ECHOCARDIOGRAM INDICATIONS: Chest pain BASELINE HEART RATE: 70 BASELINE BLOOD PRESSURE: 123/85 MAXIMUM HEART RATE: 167 MAXIMUM BLOOD PRESSURE: 164/61 85% MPHR: 119 100% MPHR: 175 METS: 10.5 MAXIMUM STAGE REACHED: III TOTAL EXERCISE TIME: 9 min RESULTS: Baseline EKG revealed normal sinus rhythm with some sinus arrhythmia and PACs. There was poor R-wave progression over leads V1, V2, which could be related to lead placement. Patient walked for 9 minutes on a standard Karel protocol. Achieved a maximal heart rate of 167 beats per minute which is well above 85% of predicted maximal. He developed fatigue and shortness of breath but he did not have any anginal symptoms. Rare isolated PVCs were noted. By EKG criteria, this is considered as a negative stress test with fair exercise capacity. There was decent chronotropic response noted. Baseline echo images revealed normal wall motion, wall thickening of all segments. At peak exercise, there was good augmentation of left ventricular wall motion, wall thickening of all segments suggesting that there is no evidence of any stress-induced ischemia on this study. IMPRESSION: 1. Fair exercise capacity with a negative stress test by EKG criteria. 2. Decent chronotropic response was noted. 3. Normal stress echocardiogram. MMODL / IJN: [id number] /
--- NOTE | 2021-04-11 22:01 | P.DS ---
Providers Date of admission: 04/10/21 11:46 Expected date of discharge: 04/11/21 Attending physician: Shantanu Degroot Primary care physician: [facility] Course: Chief Complaint: Chest pain This is a 46-year-old patient who follows with Dr. Dias. Patient does not take any medications at home. Patient was at work this morning and he felt a squeezing sensation in the middle of the chest. He feels slightly dizzy. No perspiration. Slightly short of breath. Do not radiate anywhere. No relieving or exacerbating factors. Pain was still present after 3-4 hours. Patient denies any prior cardiac history. He does smoke 2 cigars a day. Was a prior cigarette smoker. Does smoke marijuana 2-3 joints a day. Patient admitted for unstable angina. April 11: Stress echocardiogram negative. Cleared by cardiology for discharge. No chest pain. Patient counseled about smoking and marijuana. Also diet. Discussion and discharge planning more than 35 minutes Consultation: Dr. MICHAEL Figueroa from cardiology Past medical history to include: Heart murmur Social history: Patient works at a company that makes [email or web address]. Smokes 2 cigars a day. For about a year. Prior to that a smoke cigarettes. Smokes marijuana 2-3 joints a day. Alcohol occasionally. . Physical examination: VITAL SIGNS: 97.9, 80, 18, 110/70, 94% on room air GENERAL: Sitting up, comfortable EYES: Pupils equal. Conjunctiva normal. HEENT: External appearance of nose and ears normal, oral cavity grossly normal. NECK: JVD not raised; masses not palpable. HEART: First and second heart sounds are normal; no edema. LUNGS: Respiratory rate normal; clear to auscultation. ABDOMEN: Soft, nontender, liver spleen not palpable, no masses palpable. PSYCH: Alert and oriented x3; mood and affect normal. MUSCULOSKELETAL:No Clubbing/cyanosis;muscles-grossly intact INVESTIGATIONS, reviewed in the clinical context: Stress echocardiogram: Negative 2-D echocardiogram: EF 55-60% LDL 82 White count 9.0 hemoglobin 16.1 platelets 138 potassium 4.2 creatinine 0.78 Troponin I less than 0.0122 Coronavirus [PCR]: Not detected EKG tracing personally reviewed by me-normal sinus rhythm. Rate 64 Chest x-ray film personally reviewed by me-some hyperinflation. No infiltrate Assessment and plan: -Anterior chest wall pain. . Coronary risk factors include smoking and smoking marijuana. EKG unremarkable. Troponins are negative. Could be muscular skeletal Stress echocardiogram negative. -Chronic nicotine dependence, cigarette smoker Nicotine patch -Recreational marijuana use daily Advised against the same Disposition: Home Patient Condition at Discharge: Fair Plan - Discharge Summary Discharge Rx Participant: No New Discharge Prescriptions: New Nicotine 21Mg/24Hr Patch [Habitrol] 1 patch TRANSDERM DAILY #14 patch Discharge Medication List Nicotine 21Mg/24Hr Patch [Habitrol] 1 patch TRANSDERM DAILY #14 patch 04/11/21 [Rx] Follow up Appointment(s)/Referral(s): Zoltan Figueroa MD [STAFF PHYSICIAN] - 04/30/21 1:45 pm Mauro Dias MD [Primary Care Provider] - 1-2 days Patient Instructions/Handouts: Heart Healthy Diet (DC) Activity/Diet/Wound Care/Special Instructions: Heart Healthy Diet. see diet sheet activity as tolerated continue to quit smoking. follow up with Dr Maribel Figueroa as scheduled. call your DR with return or worsening of the symptoms that brought you here or any concerns. May return to work no strictions ( verb to pt from Dr Degroot) Discharge Disposition: HOME SELF-CARE
== END 2021-04-11 14:17 | disposition home or self-care (01) ==
LOC: EC 09:39 → 6NMEDSUR 11:46
PROVIDERS: ADMIT Hospitalist; ATTEND Hospitalist
DX: R07.89 Other chest pain (principal); Z20.822 Contact with and (suspected) exposure to COVID-19; F17.290 Nicotine dependence, other tobacco product, uncomplicated; F12.90 Cannabis use, unspecified, uncomplicated; R42 Dizziness and giddiness; Z88.5 Allergy status to narcotic agent; Z71.6 Tobacco abuse counseling; Z71.51 Drug abuse counseling and surveillance of drug abuser; Z82.49 Family history of ischemic heart disease and other diseases of the circulatory system
CPT/HCPCS: 99285; 36415; 93005; 93306; 93351; 80061; 80053; 84443; 83690; 83735; 84484; 85025; 85610; 85730; 87635; 71046; G0378 ×2; S4990 ×2

== ENCOUNTER 2021-06-07 10:46 | Emergency (ER) | payer BC, OTHER ==
[2021-06-07 10:54] VITALS: TEMP 98.2
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
[2021-06-07 11:34] LABS: Basophils % (A) 0 %; Eosinophils # (A) 0.2 k/uL (0-0.7); Eosinophils % (A) 3 %; HCT 46.9 % (39.0-53.0); Lymphocytes # (A) 1.8 k/uL (1.0-4.8); Lymphocytes % (A) 25 %; MCH 32.4 pg (25.0-35.0); MCV 95.3 fL (80.0-100.0); Mean Platelet Volume 10.4; Monocytes # (A) 0.3 k/uL (0-1.0); Monocytes % (A) 4 %; Neutrophils # (A) 4.8 k/uL (1.3-7.7); Neutrophils % (A) 67 %; Platelet Count 137 k/uL (150-450); RBC 4.93 m/uL (4.30-5.90); RDW 14.7 % (11.5-15.5); WBC 7.2 k/uL (3.8-10.6)
[2021-06-07 11:38] LABS: INR 0.9 (<1.2); Partial Thromboplastin Time 24.4 sec (22.0-30.0); Prothrombin Time 10.3 sec (9.0-12.0)
--- NOTE | 2021-06-07 11:42 | XR ---
EXAMINATION TYPE: XR chest 2V DATE OF EXAM: 06/07/2021 COMPARISON: 04/10/2021 HISTORY: Chest pain TECHNIQUE: Frontal and lateral views of the chest are obtained. FINDINGS: There is no focal air space opacity. No evidence for pneumothorax. No pleural effusion. The cardiac silhouette size is within normal limits. The osseous structures are grossly intact. IMPRESSION: 1. No acute cardiopulmonary process.
[2021-06-07 11:50] LABS: ALT 37 U/L (4-49); AST 33 U/L (17-59); African American GFR (CKD) >90 (>60 ml/min/1.73 sqM); Albumin 4.3 g/dL (3.5-5.0); Alkaline Phosphatase 81 U/L (38-126); Anion Gap 5 mmol/L; Blood Urea Nitrogen 15 mg/dL (9-20); Carbon Dioxide 25 mmol/L (22-30); Chloride 105 mmol/L (98-107); Glucose 115 mg/dL (74-99); Lipase 86 U/L (23-300); Magnesium 1.8 mg/dL (1.6-2.3); Non-African American GFR(CKD) >90 (>60 ml/min/1.73 sqM); Potassium 4.1 mmol/L (3.5-5.1); Sodium 135 mmol/L (137-145); Total Bilirubin 0.5 mg/dL (0.2-1.3); Total Protein 7.9 g/dL (6.3-8.2)
[2021-06-07 13:16] VITALS: BP 130/83; PULSE 57; RESP 18
== END 2021-06-07 13:44 | disposition home or self-care (01) ==
LOC: EC 10:46
DX: R07.89 Other chest pain (principal); J45.909 Unspecified asthma, uncomplicated; Z87.891 Personal history of nicotine dependence; Z88.5 Allergy status to narcotic agent
CPT/HCPCS: 36415; 71046; 80053; 83690; 83735; 83880; 84484; 85025; 85610; 85730; 93005; 99285

== ENCOUNTER → 2021-06-20 | Outpatient (CLI) | payer BC, OTHER ==
--- NOTE | 2021-06-20 10:10 | XR ---
EXAMINATION TYPE: XR shoulder complete BILAT DATE OF EXAM: 06/20/2021 CLINICAL HISTORY: Pain and burning for one year. TECHNIQUE: Three views of the bilateral shoulders are obtained. COMPARISON: Prior left shoulder x-ray March 09, 2021. FINDINGS: There is no acute fracture/dislocation evident in either shoulder. [id number] narrow ing at the acromioclavicular joints with mild to moderate spurring bilaterally is fairly symmetric in appearance. The glenohumeral joints are maintained bilaterally. The visualized ribs are intact bilat erally. IMPRESSION: As above.
== END | disposition home or self-care (01) ==
LOC: RADXRMAIN 09:20
PROVIDERS: ATTEND Family Medicine
DX: M25.812 Other specified joint disorders, left shoulder (principal); M25.811 Other specified joint disorders, right shoulder; M25.712 Osteophyte, left shoulder; M25.711 Osteophyte, right shoulder

== ENCOUNTER 2022-03-24 20:04 | Emergency (ER) | payer BC, OTHER ==
[2022-03-24 20:42] VITALS: RESP 18; TEMP 98.4
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
--- NOTE | 2022-03-24 21:50 | XR ---
EXAMINATION TYPE: XR chest 2V DATE OF EXAM: 03/24/2022 COMPARISON: NONE HISTORY: Cough TECHNIQUE: 2 views FINDINGS: Heart and mediastinum are normal. Lungs are clear. Diaphragm is normal. Bony thorax is inta ct. IMPRESSION: Normal chest.
[2022-03-24 23:13] VITALS: BP 141/91; PULSE 78
== END 2022-03-24 23:12 | disposition home or self-care (01) ==
LOC: EC 20:04
DX: J20.9 Acute bronchitis, unspecified (principal); J45.909 Unspecified asthma, uncomplicated; Z87.891 Personal history of nicotine dependence; Z88.5 Allergy status to narcotic agent; Z20.822 Contact with and (suspected) exposure to COVID-19
CPT/HCPCS: 71046; 87502; 87635; 99283

== ENCOUNTER → 2023-04-02 | Day surgery (SDC) | payer OTHER ==
[2023-03-21 15:35] VITALS: BMI 30.5
[~2023-04-02] MED LIST: LACTATED RINGERS 1,000 ML IV SCH; LIDOCAINE 1% (10MG/ML) FOR IV START INTRADERMA PRN; PROPOFOL 10 MG/ML 20 ML VIAL IV ONE
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
[2023-04-02 09:31] VITALS: TEMP 97.4
[2023-04-02 09:54] VITALS: RESP 14
--- NOTE | 2023-04-02 09:54 | P.PCN ---
Date of Procedure: 04/02/23 Description of Procedure: PREOPERATIVE DIAGNOSIS: Colonoscopy screening POSTOPERATIVE DIAGNOSIS: Tubular adenoma rectum Sigmoid diverticulosis OPERATION: Colonoscopy to the ileocecal valve and appendiceal orifice, cecum Colonoscopy with hot snare polypectomy SURGEON: Philly Gonzalez MD. ANESTHESIA: MAC. INDICATIONS: The patient is an 48-year-old male who presents colonoscopy screening. Benefits and risks were described and informed consent was obtained. DESCRIPTION OF PROCEDURE: The patient had undergone Golytelt prep. The patient had been brought into the operating room and laid in the left lateral decubitus position. After adequate intravenous sedation, the rectum was examined with 2% lidocaine jelly. The prostate was unremarkable. No external hemorrhoids were encountered. The rectal tone was within normal limits. No lesions were palpated in the rectal vault. An Olympus colonoscope was advanced until the cecum, ileocecal valve and appendiceal orifice were clearly viewed. The prep was fair. Sigmoid diverticulosis was encountered. Colonic polyps were found and removed. No ev idence of focal colitis was found. Retroflexion of the scope demonstrated grade 2 internal hemorrhoids without active bleeding or inflammation. The colon was desufflated. The patient had tolerated the procedure well. Withdrawal time was over 6 minutes. FINDINGS: Aronchick preparation quality scale 1 (1-5) Internal hemorrhoids, grade 1 No external hemorrhoids No arteriovenous malformations. Sigmoid diverticulosis Removal of 1 polyps: - Snare polypectomy 15 cm from the anal verge, 5 mm tubulovillous adenoma No focal colitis. RECOMMENDATIONS: Repeat colonoscopy 3 years2026 Plan - Discharge Summary Discharge Rx Participant: No New Discharge Prescriptions: Continue Ibuprofen [Motrin] 800 mg PO Q8H PRN PRN Reason: Pain Discharge Medication List Ibuprofen [Motrin] 800 mg PO Q8H PRN 06/07/21 [History] Follow up Appointment(s)/Referral(s): Philly Gonzalez MD [STAFF PHYSICIAN] - As Needed Patient Instructions/Handouts: Diverticulosis (DC), Colorectal Polyps (GEN), Diverticulitis Diet (GEN) Activity/Diet/Wound Care/Special Instructions: Repeat colonoscopy in 3 years2026 Discharge Disposition: HOME SELF-CARE
[2023-04-02 10:18] VITALS: BP 130/81; PULSE 62
== END | disposition home or self-care (01) ==
LOC: ORWHC2ENDO 08:53
PROVIDERS: ATTEND Surgery Plastic and Reconstructive Surgery
DX: Z12.11 Encounter for screening for malignant neoplasm of colon (principal); K57.30 Diverticulosis of large intestine without perforation or abscess without bleeding; K62.1 Rectal polyp; J44.89 Other specified chronic obstructive pulmonary disease; F17.200 Nicotine dependence, unspecified, uncomplicated; Z79.899 Other long term (current) drug therapy; Z88.5 Allergy status to narcotic agent
CPT/HCPCS: 88305; 45385; J2704

== ENCOUNTER → 2024-01-21 | Outpatient (CLI) | payer OTHER ==
--- NOTE | 2024-01-21 08:44 | XR ---
EXAMINATION TYPE: XR chest 2V DATE OF EXAM: 01/21/2024 COMPARISON: 03/24/2022 HISTORY: 48-year-old male smoking history, shortness of breath, R06.09. TECHNIQUE: Frontal and lateral views FINDINGS: Heart upper limits of normal in size. Mild hyperinflation. Mild interstitial density is unchanged. So me patchy right infrahilar opacity is increased along the right heart margin. No other consolidation or pleural effusion. IMPRESSION: 1. Correlate for underlying COPD. 2. Increased patchy opacity at the medial right base could represent atelectasis or developing infilt rate. [facility], , 01/21/2024 8:41 AM
[2024-01-21 09:08] LABS: Basophils # (A) 0.1 k/uL (0-0.2); Basophils % (A) 1 %; Eosinophils # (A) 0.4 k/uL (0-0.7); Eosinophils % (A) 5 %; HCT 48.6 % (39.0-53.0); HGB 15.6 gm/dL (13.0-17.5); Lymphocytes # (A) 1.8 k/uL (1.0-4.8); Lymphocytes % (A) 21 %; MCH 30.4 pg (25.0-35.0); MCHC 32.1 g/dL (31.0-37.0); MCV 94.5 fL (80.0-100.0); Mean Platelet Volume 10.3; Monocytes # (A) 0.4 k/uL (0-1.0); Monocytes % (A) 4 %; Neutrophils # (A) 5.8 k/uL (1.3-7.7); Neutrophils % (A) 68 %; Platelet Count 145 k/uL (150-450); RBC 5.15 m/uL (4.30-5.90); RDW 14.6 % (11.5-15.5); WBC 8.6 k/uL (3.8-10.6)
[2024-01-21 09:11] LABS: INR 0.9 (<1.2); Partial Thromboplastin Time 24.5 sec (22.0-30.0); Prothrombin Time 10.4 sec (10.0-12.5)
[2024-01-21 11:39] LABS: RBC Morphology Normal
[2024-01-21 19:26] LABS: HIV 2 AB Non-Reactive (Non-Reactive); HIV AB P24 Non-Reactive (Non-Reactive); HIV P24 AG Non-Reactive (Non-Reactive)
== END | disposition home or self-care (01) ==
LOC: RADXRMAIN 08:13
PROVIDERS: ATTEND Student in an Organized Health Care Education/Training Program
CPT/HCPCS: 71046; 85025; 85610; 85730; 87390

== ENCOUNTER → 2024-02-11 | Outpatient (CLI) | payer OTHER ==
--- NOTE | 2024-02-11 12:32 | US ---
EXAMINATION TYPE: US abdomen complete DATE OF EXAM: 02/11/2024 COMPARISON: NONE CLINICAL INDICATION: Male, 48 years old with history of D69.6 THROMBOCYTOPENIA, UNSPECIFIED; TECHNIQUE: Grayscale and color Doppler imaging of the abdomen was performed. FINDINGS: EXAM MEASUREMENTS: Liver Length: 14.3 cm Gallbladder Wall: 0.2 cm CBD: 0.2 cm, color Doppler imaging was utilized to isolate the common bile duct for measurement. Spleen: 8.7 cm Right Kidney: 11.6x5.8x5.5 cm Left Kidney: 12.5x6.4x5.5 cm CHIEF PRIVACY OFFICER NOTES: Pancreas: 0.3cm panc duct visualized Liver: hypoechoic area visualized (rt lobe): 2.0x1.1x1.5cm Gallbladder: No stones seen Evidence for sonographic Walker's sign: No CBD: wnl Spleen: wnl Right Kidney: ?dilated renal pelvis Left Kidney: No hydronephrosis or masses seen Upper IVC: wnl Abd Aorta: wnl IMPRESSION: 1. No evidence for acute process. 2. Indeterminate lesion in the right hepatic lobe measuring up to 2.0 cm. Liver mass protocol MRI wi th IV contrast recommended for complete evaluation. 3. Right extrarenal pelvis. [facility], , 02/11/2024 12:30 PM
== END | disposition home or self-care (01) ==
LOC: RADUSWWP 09:14
PROVIDERS: ATTEND Student in an Organized Health Care Education/Training Program
DX: D69.6 Thrombocytopenia, unspecified (principal)
CPT/HCPCS: 76700